=== PATIENT | male | born 1955 | race Caucasian/White ===

== ENCOUNTER 2022-03-11 11:47 | Outpatient (CLI) | payer MEDICARE, SELFPAY ==
--- NOTE | ~2022-03-11 | XR_ITS ---
XR chest 2V DATE: 03/11/2022 12:24 INDICATION: Shortness of breath TECHNIQUE: PA and lateral views COMPARISON: None FINDINGS: Normal heart size. Mild aortic tortuosity. No hilar or mediastinal enlargement. No pulmonar y infiltrate or consolidation, pleural effusion or pulmonary vascular congestion or pneumothorax. Osteopenia. IMPRESSION: No active cardiopulmonary disease Reviewed, dictated and finalized at location A. THERAPY CERTIFIED SUPERVISOR
[2022-03-11 12:35] LABS: Basophils Percent Auto 0.4 % (0.2-1.2); Eosinophils Absolute Auto 0.2 K/mm3 (0-0.3); Eosinophils Percent Auto 1.9 % (0-4.4); Hematocrit 49.9 % (42.0-52.0); Immature Granulocyte Percent A 1.2 % (0-0.5); Lymphocytes Absolute Auto 1.89 K/mm3 (0.9-3.2); Lymphocytes Percent Auto 22.7 % (18.3-44.2); Mean Corpuscular HGB Conc 32.1 g/dl (32-36); Mean Corpuscular Hemoglobin 27.4 pg (26-34); Mean Corpuscular Volume 85.3 fl (80-100); Mean Platelet Volume 10.2 fl (7.4-10.4); Monocytes Absolute Auto 0.7 K/mm3 (0.1-0.6); Monocytes Percent Auto 8.3 % (2.6-8.5); Neutrophils Absolute Auto 5.5 K/mm3 (1.3-6.7); Neutrophils Percent Auto 65.5 % (45.5-73.1); Platelet Count Result 274 k/mm3 (150-375); Red Blood Count 5.85 M/mm3 (4.6-6.20); Red Cell Distribution Width 13.7 % (11.5-14.5); White Blood Count 8.3 K/mm3 (4.5-10.0)
[2022-03-11 12:43] LABS: Hemoglobin A1C 7.6 % (<5.7)
[2022-03-11 12:56] LABS: LDL Cholesterol Direct 164 mg/dL
[2022-03-11 13:23] LABS: Alanine Aminotransferase 58 U/L (6-50); Albumin Level 4.8 g/dL (3.5-5.1); Alkaline Phosphatase 101 U/L (38-126); Anion Gap 14 mmol/L (8-16); Aspartate Amino Transferase 51 U/L (17-59); Bilirubin,Total 1.3 mg/dL (0.2-1.3); Blood Urea Nitrogen 13 mg/dL (9-20); Carbon Dioxide 24 mmol/L (22-30); Chloride 101 mmol/L (98-107); Cholesterol 261 mg/dL (0-200); Estimated Glomerular Filt Rate > 60; Glucose 122 mg/dL (65-110); HDL Direct 39 mg/dL; Potassium 4.3 mmol/L (3.4-5.0); Sodium 139 mmol/L (137-145); Triglycerides 202 mg/dL (<150)
== END 2022-03-11 11:48 | disposition home or self-care (01) ==
LOC: ANHLAB 11:51
PROVIDERS: PCP Family Medicine; Visit Provider Family Medicine
DX: R06.02 Shortness of breath (principal); S20.219A Contusion of unspecified front wall of thorax, initial encounter; Z00.00 Encounter for general adult medical examination without abnormal findings; R73.09 Other abnormal glucose; R53.82 Chronic fatigue, unspecified
CPT/HCPCS: 36415; 71046; 80053; 80061; 83036; 84443; 85025

== ENCOUNTER 2022-04-05 01:52 | Day surgery (SDC) | payer MEDICARE, SELFPAY ==
[2022-03-23 13:35] VITALS: BMI 33.8
--- NOTE | 2022-04-05 12:31 | WPDANESEPPF ---
Anes - Initial Pre Proc Eval Procedure: Operation Date: 04/05/22 13:30 Proposed Procedures p Screening Colonoscopy - George Carlin MD Date/Time: 04/05/22 12:31 Surgeon: George Carlin MD Pre Op Diagnosis: Hx of colon polyps Patient Data Age: 66 Gender: M Height: 1.91 m Weight: 122.8 kg Allergies Allergy/AdvReac Type Severity Reaction Status Date / Time No Known Allergies Allergy Verified 04/05/22 12:31 Home Medications Medication Instructions Recorded Confirmed Type empagliflozin 10 mg tablet 10 mg PO DAILY 03/16/22 03/23/22 History (Jardiance) sodium,potassium,mag sulfates 17.5 See Rx Instructions PO .COMPLEX 03/16/22 Rx gram-3.13 gram-1.6 gram oral soln #354 mL (Suprep Bowel Prep Kit) Patient hx anesthesia problems: none Family hx anesthesia problems: none Results Review: All pre-operative results and documents have been reviewed as part of the pre-operative evaluation. [facility] Past Medical History Medical History (Updated 04/05/22 @ 12:32 by Sriram Hathaway DO) Asthma Diabetes type 2, controlled Surgical History Surgical History (Updated 03/11/22 @ 10:31 by Kathy Dalton MD) Hx of tonsillectomy Family History Family History (Updated 03/11/22 @ 10:33 by Kathy Dalton MD) Father Diabetes mellitus Heart disease Mother Hand's palsy Social History Social History (Updated 03/11/22 @ 10:36 by Kathy Dalton MD) Social History: single, lives alone, works -self employed Smoking status: Never smoker Second hand tobacco smoke exposure: No Alcohol intake: current Drinks per week: 1 Alcohol use details: rarely Substance use: never Substance use type: does not use Lack of Transportation: No Current Housing: I Have Housing Concerned About Future Housing: No Difficulty Paying Gas/Electric Bills: No Difficulty Paying for Meds: No Currently Unemployed: No Education: Trade/Vocational Certificate Living arrangements: with family Additional occupation/education comments: self Gender identity (if verbalized by the patient): Male Sexual Orientation (if Verbalized by the Patient): Straight or Heterosexual Spiritual care concerns: No Agree to blood products: Yes Anes - Eval Final PreProcedure Day of Procedure 04/05/22 12:31 Patient weight: obese Heart: regular rate and rhythm Lungs: clear to auscultation Airway: Mallampati scale class II Neurological: alert and oriented Last oral intake: >/= 8 hours ASA classification: III Emergent: no Anesthetic plan: proceed Anesthesia type and monitoring: general GIVS and standard monitoring Results Review: All pre-operative results and documents have been reviewed as part of the pre-operative evaluation. Informed Consent: The patient's anesthetic plan and its attendant risks and benefits were discussed with the patient/family/POA. Questions were solicited and answers provided to the satisfaction of the patient/family/POA.
[2022-04-05] MEDS: LACTATED RINGERS 1,000 ML 150 ML IV CONT (12:45)
[2022-04-05 12:53] LABS: Glucose Point of Care 143 mg/dl (65-105)
--- NOTE | 2022-04-05 13:21 | PM.HPGS ---
History of Present Illness History of Present Illness Consent: Risks, benefits, and alternatives have been discussed and questions answered. Patient agrees to proceed with procedure. Chief complaint: screening colonoscopy Narrative: Chris Tabor is a 66 year old male presents for screening colonoscopy. Patient reports his current weight appetite and bowel movements are normal. Patient denies abdominal pain. He has had no bleeding. Patient has a distant history of hyperplastic colon polyp in 2002. Family history is noncontributory. Review of Systems Review of Systems: Review of systems noncontributory. [facility] Past Medical History Medical History (Updated 04/05/22 @ 13:23 by George Carlin MD) Asthma Diabetes type 2, controlled Surgical History Surgical History (Updated 03/11/22 @ 10:31 by Kathy Dalton MD) Hx of tonsillectomy Family History Family History (Updated 03/11/22 @ 10:33 by Kathy Dalton MD) Father Diabetes mellitus Heart disease Mother Hand's palsy Social History Social History (Updated 03/11/22 @ 10:36 by Kathy Dalton MD) Social History: single, lives alone, works -self employed Smoking status: Never smoker Second hand tobacco smoke exposure: No Alcohol intake: current Drinks per week: 1 Alcohol use details: rarely Substance use: never Substance use type: does not use Lack of Transportation: No Current Housing: I Have Housing Concerned About Future Housing: No Difficulty Paying Gas/Electric Bills: No Difficulty Paying for Meds: No Currently Unemployed: No Education: Trade/Vocational Certificate Living arrangements: with family Additional occupation/education comments: self Gender identity (if verbalized by the patient): Male Sexual Orientation (if Verbalized by the Patient): Straight or Heterosexual Spiritual care concerns: No Agree to blood products: Yes Meds Home Medications and Allergies Home Medications Medication Instructions Recorded Confirmed Type empagliflozin 10 mg tablet 10 mg PO DAILY 03/16/22 03/23/22 History (Jardiance) sodium,potassium,mag sulfates 17.5 See Rx Instructions PO .COMPLEX 03/16/22 Rx gram-3.13 gram-1.6 gram oral soln #354 mL (Suprep Bowel Prep Kit) Allergies Allergy/AdvReac Type Severity Reaction Status Date / Time No Known Allergies Allergy Verified 04/05/22 12:31 Exam Narrative: Physical exam reveals patient to be alert. Vital signs stable. HEENT exam is unremarkable. Patient is anicteric. Lungs are clear to auscultation and percussion. Heart is without murmur or extra sounds. Abdomen bowel sounds are present soft nontender with no organomegaly. Digital external rectal exam is normal. Assessment and Plan Assessment and plan (1) Encounter for screening colonoscopy: Code(s): Z12.11 - Encounter for screening for malignant neoplasm of colon Status: Acute Assessment and Plan: Patient presents for screening colonoscopy. Appears to be at average risk for colon polyps. Further recommendations may be given after endoscopy.
[2022-04-05 13:59] VITALS: BP 104/60; PULSE 87; RESP 32; O2SAT 93
[2022-04-05 14:05] VITALS: BP 112/78; PULSE 86; RESP 30; O2SAT 94
== END 2022-04-05 14:28 | disposition home or self-care (01) ==
PROVIDERS: PCP Family Medicine; Visit Provider Internal Medicine Gastroenterology
PROC: 0DJD8ZZ Inspection of Lower Intestinal Tract, Via Natural or Artificial Opening Endoscopic (ICD-10-PCS; CPT 45378; principal; 2022-04-05 13:30)
DX: Z12.11 Encounter for screening for malignant neoplasm of colon (principal); D12.5 Benign neoplasm of sigmoid colon; K57.30 Diverticulosis of large intestine without perforation or abscess without bleeding; E11.9 Type 2 diabetes mellitus without complications; Z79.84 Long term (current) use of oral hypoglycemic drugs; E66.9 Obesity, unspecified; Z68.34 Body mass index [BMI] 34.0-34.9, adult
CPT/HCPCS: 45385; 82948; 88305; J2704; J7120

== ENCOUNTER 2022-06-15 14:21 | Outpatient (CLI) | payer MEDICARE, OTHER, SELFPAY ==
[2022-06-15 15:39] LABS: Alanine Aminotransferase 54 U/L (6-50); Albumin Level 4.7 g/dL (3.5-5.1); Alkaline Phosphatase 120 U/L (38-126); Anion Gap 9 mmol/L (8-16); Aspartate Amino Transferase 37 U/L (17-59); Blood Urea Nitrogen 12 mg/dL (9-20); Calcium 9.1 mg/dL (8.4-10.2); Carbon Dioxide 24 mmol/L (22-30); Chloride 107 mmol/L (98-107); Cholesterol 212 mg/dL (0-200); Estimated Glomerular Filt Rate > 60; Glucose 98 mg/dL (65-110); HDL Direct 34 mg/dL; Potassium 4.1 mmol/L (3.4-5.0); Sodium 140 mmol/L (137-145); Triglycerides 174 mg/dL (<150)
[2022-06-15 15:50] LABS: LDL Cholesterol Direct 125 mg/dL
[2022-06-15 15:58] LABS: Creatinine Urine 177.6 mg/dL
[2022-06-15 16:33] LABS: MALB Creatinine Ratio 17.7 mg/g (0-30); Microalbumin Urine Random 31.4 mg/L (0-16.7)
[2022-06-15 16:42] LABS: Hemoglobin A1C 6.3 % (<5.7)
[2022-06-17 21:01] LABS: PSA, Free 0.31 ng/mL; PSA, Total 1.6 ng/mL (<=4.0)
[2022-06-18 13:05] LABS: ANA Cascade Screen Negative (Negative)
[2022-06-19 00:06] LABS: Vitamin D 1,25 (OH)2 Total 41 pg/mL (18-72); Vitamin D2 1,25 (OH)2 <8 pg/mL; Vitamin D3 1,25 (OH)2 41 pg/mL
== END 2022-06-15 14:22 | disposition home or self-care (01) ==
LOC: ANHLAB 14:26
PROVIDERS: PCP Family Medicine; Visit Provider Family Medicine
DX: M85.80 Other specified disorders of bone density and structure, unspecified site (principal); E55.9 Vitamin D deficiency, unspecified; M19.90 Unspecified osteoarthritis, unspecified site; E11.9 Type 2 diabetes mellitus without complications; E78.2 Mixed hyperlipidemia; N40.1 Benign prostatic hyperplasia with lower urinary tract symptoms; I10 Essential (primary) hypertension
CPT/HCPCS: 36415; 80053; 80061; 82043; 82652; 83036; 84153; 84154; 86038

== ENCOUNTER 2022-09-08 11:42 | Outpatient (CLI) | payer MEDICARE, OTHER, SELFPAY ==
[2022-09-08 12:09] LABS: Basophils Percent Auto 0.5 % (0.2-1.2); Eosinophils Absolute Auto 0.1 K/mm3 (0-0.3); Eosinophils Percent Auto 1.7 % (0-4.4); Immature Granulocyte Percent A 1.2 % (0-0.5); Lymphocytes Absolute Auto 1.98 K/mm3 (0.9-3.2); Lymphocytes Percent Auto 24.1 % (18.3-44.2); Mean Corpuscular HGB Conc 32.1 g/dl (32-36); Mean Corpuscular Hemoglobin 27.4 pg (26-34); Mean Corpuscular Volume 85.3 fl (80-100); Mean Platelet Volume 10.3 fl (7.4-10.4); Monocytes Absolute Auto 0.8 K/mm3 (0.1-0.6); Monocytes Percent Auto 10.2 % (2.6-8.5); Neutrophils Absolute Auto 5.1 K/mm3 (1.3-6.7); Neutrophils Percent Auto 62.3 % (45.5-73.1); Platelet Count Result 254 k/mm3 (150-375); Red Blood Count 6.21 M/mm3 (4.6-6.20); Red Cell Distribution Width 15.3 % (11.5-14.5); White Blood Count 8.2 K/mm3 (4.5-10.0)
[2022-09-08 12:19] LABS: Alanine Aminotransferase 40 U/L (6-50); Albumin Level 4.6 g/dL (3.5-5.1); Alkaline Phosphatase 125 U/L (38-126); Anion Gap 7 mmol/L (8-16); Aspartate Amino Transferase 34 U/L (17-59); Bilirubin,Total 0.9 mg/dL (0.2-1.3); Blood Urea Nitrogen 19 mg/dL (9-20); Calcium 9.1 mg/dL (8.4-10.2); Carbon Dioxide 27 mmol/L (22-30); Chloride 104 mmol/L (98-107); Cholesterol 178 mg/dL (0-200); Estimated Glomerular Filt Rate > 60; Glucose 116 mg/dL (65-110); HDL Direct 36 mg/dL; Potassium 4.3 mmol/L (3.4-5.0); Sodium 138 mmol/L (137-145); Triglycerides 205 mg/dL (<150)
[2022-09-08 12:30] LABS: LDL Cholesterol Direct 104 mg/dL
[2022-09-08 13:13] LABS: Creatinine Urine 101.3 mg/dL
[2022-09-08 13:18] LABS: MALB Creatinine Ratio 24.6 mg/g (0-30); Microalbumin Urine Random 24.9 mg/L (0-16.7)
[2022-09-08 13:48] LABS: Hemoglobin A1C 6.6 % (<5.7)
== END 2022-09-08 11:43 | disposition home or self-care (01) ==
LOC: ANHLAB 11:44
PROVIDERS: PCP Family Medicine; Visit Provider Family Medicine
DX: E11.9 Type 2 diabetes mellitus without complications (principal); E78.2 Mixed hyperlipidemia
CPT/HCPCS: 36415; 80053; 80061; 82043; 83036; 85025

== ENCOUNTER 2023-04-04 12:50 | Outpatient (CLI) | payer MEDICARE, OTHER, SELFPAY ==
[2023-04-04 13:13] LABS: Basophils Percent Auto 0.4 % (0.2-1.2); Eosinophils Absolute Auto 0.2 K/mm3 (0-0.3); Eosinophils Percent Auto 1.9 % (0-4.4); Hematocrit 49.6 % (42.0-52.0); Immature Granulocyte Absolute 0.09 K/mm3 (0.00-0.031); Lymphocytes Absolute Auto 2.43 K/mm3 (0.9-3.2); Mean Corpuscular HGB Conc 32.3 g/dl (32-36); Mean Corpuscular Hemoglobin 27.4 pg (26-34); Mean Corpuscular Volume 85.1 fl (80-100); Mean Platelet Volume 9.6 fl (7.4-10.4); Monocytes Absolute Auto 0.8 K/mm3 (0.1-0.6); Monocytes Percent Auto 9.3 % (2.6-8.5); Neutrophils Absolute Auto 5.4 K/mm3 (1.3-6.7); Neutrophils Percent Auto 60.4 % (45.5-73.1); Platelet Count Result 264 k/mm3 (150-375); Red Blood Count 5.83 M/mm3 (4.6-6.20); Red Cell Distribution Width 14.3 % (11.5-14.5)
[2023-04-04 13:22] LABS: Alanine Aminotransferase 19 U/L (6-50); Albumin Level 4.5 g/dL (3.5-5.1); Alkaline Phosphatase 115 U/L (38-126); Anion Gap 10 mmol/L (8-16); Aspartate Amino Transferase 25 U/L (17-59); Bilirubin,Total 0.8 mg/dL (0.2-1.3); Blood Urea Nitrogen 14 mg/dL (9-20); Calcium 9.4 mg/dL (8.4-10.2); Carbon Dioxide 27 mmol/L (22-30); Chloride 103 mmol/L (98-107); Cholesterol 183 mg/dL (0-200); Estimated Glomerular Filt Rate > 60; Glucose 111 mg/dL (65-110); HDL Direct 41 mg/dL; Potassium 4.4 mmol/L (3.4-5.0); Sodium 140 mmol/L (137-145); Triglycerides 217 mg/dL (<150)
[2023-04-04 13:38] LABS: LDL Cholesterol Direct 99 mg/dL
[2023-04-04 14:04] LABS: Hemoglobin A1C 6.3 % (<5.7)
== END 2023-04-04 12:51 | disposition home or self-care (01) ==
LOC: ANHLAB 12:52
PROVIDERS: PCP Family Medicine; Visit Provider Family Medicine
DX: E78.2 Mixed hyperlipidemia (principal); I10 Essential (primary) hypertension; E11.9 Type 2 diabetes mellitus without complications
CPT/HCPCS: 36415; 80053; 80061; 83036; 85025

== ENCOUNTER 2023-08-18 12:46 | Outpatient (CLI) | payer MEDICARE, SELFPAY ==
[2023-08-18 13:18] LABS: Basophils Percent Auto 0.5 % (0.2-1.2); Eosinophils Absolute Auto 0.2 K/mm3 (0-0.3); Eosinophils Percent Auto 2.8 % (0-4.4); Hematocrit 51.2 % (42.0-52.0); Hemoglobin 16.3 g/dL (14.0-18.0); Immature Granulocyte Absolute 0.12 K/mm3 (0.00-0.031); Immature Granulocyte Percent A 1.4 % (0-0.5); Lymphocytes Absolute Auto 1.67 K/mm3 (0.9-3.2); Mean Corpuscular HGB Conc 31.8 g/dl (32-36); Mean Corpuscular Hemoglobin 27.1 pg (26-34); Mean Platelet Volume 9.7 fl (7.4-10.4); Monocytes Absolute Auto 0.7 K/mm3 (0.1-0.6); Monocytes Percent Auto 8.4 % (2.6-8.5); Neutrophils Absolute Auto 5.6 K/mm3 (1.3-6.7); Neutrophils Percent Auto 66.9 % (45.5-73.1); Platelet Count Result 252 k/mm3 (150-375); Red Blood Count 6.02 M/mm3 (4.6-6.20); Red Cell Distribution Width 15.9 % (11.5-14.5); White Blood Count 8.3 K/mm3 (4.5-10.0)
[2023-08-18 13:29] LABS: Alanine Aminotransferase 27 U/L (6-50); Albumin Level 4.6 g/dL (3.5-5.1); Alkaline Phosphatase 108 U/L (38-126); Anion Gap 7 mmol/L (4-12); Aspartate Amino Transferase 25 U/L (17-59); Bilirubin,Total 0.8 mg/dL (0.2-1.3); Blood Urea Nitrogen 13 mg/dL (9-20); Calcium 9.4 mg/dL (8.4-10.2); Carbon Dioxide 25 mmol/L (22-30); Chloride 109 mmol/L (98-107); Cholesterol 185 mg/dL (0-200); Estimated Glomerular Filt Rate > 60; Glucose 135 mg/dL (65-110); HDL Direct 44 mg/dL; Potassium 4.5 mmol/L (3.4-5.0); Sodium 141 mmol/L (137-145); Triglycerides 199 mg/dL (<150)
[2023-08-18 13:30] LABS: Hemoglobin A1C 7.2 % (<5.7)
[2023-08-18 13:40] LABS: LDL Cholesterol Direct 117 mg/dL
[2023-08-18 13:49] LABS: Creatinine Urine 132.2 mg/dL
[2023-08-18 13:54] LABS: MALB Creatinine Ratio 30.7 mg/g (0-30); Microalbumin Urine Random 40.6 mg/L (0-16.7)
[2023-08-21 14:14] LABS: ANA Cascade Screen NEGATIVE (NEGATIVE)
== END 2023-08-18 12:47 | disposition home or self-care (01) ==
PROVIDERS: PCP Family Medicine; Visit Provider Family Medicine
DX: R53.82 Chronic fatigue, unspecified (principal); I10 Essential (primary) hypertension; E11.9 Type 2 diabetes mellitus without complications; M19.90 Unspecified osteoarthritis, unspecified site; E78.2 Mixed hyperlipidemia
CPT/HCPCS: 36415; 80053; 80061; 82043; 83036; 85025; 86038; 86225; 86235; 86364

== ENCOUNTER 2023-12-21 11:42 | Outpatient (CLI) | payer MEDICARE, SELFPAY ==
[2023-12-21 12:48] LABS: Alanine Aminotransferase 42 U/L (6-50); Albumin Level 4.6 g/dL (3.5-5.1); Alkaline Phosphatase 128 U/L (38-126); Anion Gap 9 mmol/L (4-12); Aspartate Amino Transferase 39 U/L (17-59); Bilirubin,Total 0.9 mg/dL (0.2-1.3); Blood Urea Nitrogen 18 mg/dL (9-20); Calcium 9.2 mg/dL (8.4-10.2); Carbon Dioxide 28 mmol/L (22-30); Chloride 101 mmol/L (98-107); Cholesterol 179 mg/dL (0-200); Estimated Glomerular Filt Rate > 60; Glucose 140 mg/dL (65-110); HDL Direct 44 mg/dL; Potassium 4.4 mmol/L (3.4-5.0); Sodium 138 mmol/L (137-145); Triglycerides 213 mg/dL (<150)
[2023-12-21 12:59] LABS: LDL Cholesterol Direct 99 mg/dL
[2023-12-21 15:00] LABS: Creatinine Urine 107.8 mg/dL
[2023-12-21 15:05] LABS: MALB Creatinine Ratio 29.2 mg/g (0-30); Microalbumin Urine Random 31.5 mg/L (0-16.7)
[2023-12-21 15:14] LABS: Hemoglobin A1C 7.4 % (<5.7)
== END 2023-12-21 11:43 | disposition home or self-care (01) ==
PROVIDERS: PCP Family Medicine; Visit Provider Family Medicine
DX: E78.2 Mixed hyperlipidemia (principal); E11.22 Type 2 diabetes mellitus with diabetic chronic kidney disease; N18.2 Chronic kidney disease, stage 2 (mild)
CPT/HCPCS: 36415; 80053; 80061; 82043; 83036

== ENCOUNTER 2024-04-16 12:16 | Outpatient (CLI) | payer MEDICARE, SELFPAY ==
[2024-04-16 13:39] LABS: Basophils Absolute Auto 0.1 K/mm3 (0.0-0.1); Basophils Percent Auto 0.7 % (0.2-1.2); Eosinophils Absolute Auto 0.1 K/mm3 (0-0.3); Eosinophils Percent Auto 1.6 % (0-4.4); Hematocrit 50.8 % (42.0-52.0); Hemoglobin 16.4 g/dL (14.0-18.0); Immature Granulocyte Percent A 1.3 % (0-0.5); Lymphocytes Absolute Auto 1.79 K/mm3 (0.9-3.2); Lymphocytes Percent Auto 23.6 % (18.3-44.2); Mean Corpuscular HGB Conc 32.3 g/dl (32-36); Mean Corpuscular Hemoglobin 27.7 pg (26-34); Mean Corpuscular Volume 85.8 fl (80-100); Mean Platelet Volume 10.9 fl (7.4-10.4); Monocytes Absolute Auto 0.8 K/mm3 (0.1-0.6); Monocytes Percent Auto 11.1 % (2.6-8.5); Neutrophils Absolute Auto 4.7 K/mm3 (1.3-6.7); Neutrophils Percent Auto 61.7 % (45.5-73.1); Platelet Count Result 242 k/mm3 (150-375); Red Blood Count 5.92 M/mm3 (4.6-6.20); Red Cell Distribution Width 14.4 % (11.5-14.5); White Blood Count 7.6 K/mm3 (4.5-10.0)
[2024-04-16 14:03] LABS: Alanine Aminotransferase 26 U/L (6-50); Albumin Level 4.7 g/dL (3.5-5.1); Alkaline Phosphatase 107 U/L (38-126); Anion Gap 7 mmol/L (4-12); Aspartate Amino Transferase 25 U/L (17-59); Bilirubin,Total 0.9 mg/dL (0.2-1.3); Blood Urea Nitrogen 20 mg/dL (9-20); Calcium 9.5 mg/dL (8.4-10.2); Carbon Dioxide 23 mmol/L (22-30); Chloride 108 mmol/L (98-107); Estimated Glomerular Filt Rate > 60; Glucose 118 mg/dL (65-110); Potassium 4.1 mmol/L (3.4-5.0); Sodium 138 mmol/L (137-145)
[2024-04-16 17:19] LABS: Hemoglobin A1C 7.1 % (<5.7)
== END 2024-04-16 12:17 | disposition home or self-care (01) ==
PROVIDERS: PCP Family Medicine; Visit Provider Family Medicine
DX: I10 Essential (primary) hypertension (principal); E11.9 Type 2 diabetes mellitus without complications
CPT/HCPCS: 36415; 80053; 83036; 85025

== ENCOUNTER 2024-09-16 14:36 | Outpatient (CLI) | payer MEDICARE, SELFPAY ==
--- OUTSIDE RECORDS SUMMARY | 2024-09-16 14:41 | XMS_ITS | Clinical Summary ---
Author Organization [facility] al Address [address] [place] [address] Care Team Providers Care Supervisor [employer] Name Role Phone Kathy Dalton MD Primary Care Provider Allergies No known active allergies Medications acetaminophen (TYLENOL) 500 mg tabletIndicatio ns:Back Pain Take 1-2 tablets (500-1,000 mg total) by mouth every 8 (eight) hours as needed for pain (1 tablet for mild to moderate pain. 2 tablets for severe pain) 30 tablet 09/07/2018 Active naproxen (NAPROSYN) 500 mg tabletIndicatio ns:Pain Take 1 tablet (500 mg total) by mouth 2 (two) times a day as needed for pain Take with food. 30 tablet 09/07/2018 Active cyclobenzaprine (FLEXERIL) 10 mg tabletIndicatio ns:Muscle Spasm Take 1 tablet (10 mg total) by mouth every 8 (eight) hours as needed for muscle spasms 20 tablet 09/07/2018 Active OneTouch Verio test strips strip USE TO TEST BLOOD SUGAR LEVELS DAILY 09/28/2022 Active Farxiga 10 mg tablet 01/04/2023 Active rosuvastatin (CRESTOR) 10 mg tablet Take 1 tablet (10 mg total) by mouth daily 10/17/2022 Active Active Problems No known active problems Surgical History Surgery Date Site/Laterality Comments TONSILLECTOMY Social History Tobacco Use Types Packs/Day Years Used Date Smoking Tobacco: Never Smokeless Tobacco: Never Personal Safety Answer Date Recorded Getting School Help Needed Not on file 07/01 Sex and Gender Information Value Date Recorded Sex Assigned at Not on file Legal Sex Male 9:22 AM CDT Gender Identity Not on file Sexual Orientation Not on file Obstetrics History Last Filed Vital Signs Vital Sign Reading Time Taken Comments Blood Pressure 109/77 09/07/2018 12:00 PM CDT Pulse 74 09/07/2018 12:00 PM CDT Temperature 36.2 C (97.2 F) 09/07/2018 9:33 AM CDT Respiratory Rate 18 09/07/2018 11:05 AM CDT Oxygen Saturation 94% 09/07/2018 12:00 PM CDT Inhaled Oxygen Concentration - - Weight 113.4 kg (250 lb) 09/07/2018 9:33 AM CDT Height 190.5 cm (6' 3 ) 09/07/2018 9:33 AM CDT Body Mass Index 31.25 09/07/2018 9:33 AM CDT Plan of Treatment Health Maintenance Due Date Last Done Comments Colon Cancer Screening-Colonoscopy 1954 Depression Screening 1954 Fall Risk Assessment 1954 Hepatitis C Screening 1954 Prostate Cancer Screening-PSA 1954 DTaP/Tdap/Td Vaccine (1 - Tdap) 1965 Hepatitis B Screening 1972 Pneumococcal vaccine 65+ (1 of 1 - PCV) 2004 Abdominal Aortic Aneurysm (AAA) Screen 12/13/2019 Well Visit 65+ 12/13/2019 Zoster Vaccine (2 of 2) 11/15/2022 09/20/2022 Influenza Vaccine (#1) 2023 Insurance MEDICARE [facility]ANS [facility] INS CO THIRD [place] LIABILITY - GENERIC Member Subscriber Plan / Payer (Ef fective 2018-Present) Name:Chris Tabor Member ID:[id number] Relation to Subscriber:Self Name:Chris Tabor Subscriber ID:[id number] Payer ID:[id number] Group ID:Not on file Type:OTHER [phone] Address: [facility] [id number] [place] [address] Care Teams Supervisor [employer] Relationship Specialty Start Date End Date Kathy Dalton MD [address] [facility] [address] [place] [address] PCP - General Family Medicine 01/05/23
--- OUTSIDE RECORDS SUMMARY | 2024-09-16 14:41 | XMS_ITS | Referral Summary ---
Author Organization [facility] al Address [address] [place] [address] Care Team Providers Care District Manager Primary Care Sales Name Role Phone Kathy Dalton MD Primary [...] Active Active Problems No known active problems Social History Tobacco Use Types Packs/Day Years Used Date Smoking Tobacco: Never Smokeless Tobacco: Never Personal Safety Answer Date Recorded Getting School Help Needed Not on file 07/01 Sex and Gender Information Value Date Recorded Sex Assigned at Not on file Legal Sex Male 9:22 AM CDT Gender Identity Not on file Sexual Orientation Not on file Last Filed Vital Signs Vital Sign Reading [...] 09/07/2018 9:33 AM CDT Plan of Treatment Not on file Insurance MEDICARE [facility] INS CO THIRD CONSTITUTION PARTY LIABILITY - GENERIC Member Subscriber Plan / Payer (Ef fective 2018-Present) Name:Chris Tabor Member ID:[id number] Relation to Subscriber:Self Name:Chris Tabor Subscriber ID:[id number] Payer ID:[id number] Group ID:Not on file Type:OTHER [phone] Address: [facility] [id number] [place] [address] Care Teams District Manager Primary Care Sales Relationship Specialty Start Date End Date Kathy Dalton MD [address] [facility] [address] [place] [id number] PCP - General Family Medicine 01/05/23
[2024-09-16 15:47] LABS: Alanine Aminotransferase 31 U/L (6-50); Albumin Level 4.7 g/dL (3.5-5.1); Alkaline Phosphatase 124 U/L (38-126); Anion Gap 12 mmol/L (4-12); Aspartate Amino Transferase 40 U/L (17-59); Bilirubin,Total 0.9 mg/dL (0.2-1.3); Blood Urea Nitrogen 18 mg/dL (9-20); Calcium 9.1 mg/dL (8.4-10.2); Carbon Dioxide 22 mmol/L (22-30); Chloride 106 mmol/L (98-107); Estimated Glomerular Filt Rate > 60; Glucose 135 mg/dL (65-110); Potassium 4.3 mmol/L (3.4-5.0); Sodium 140 mmol/L (137-145)
== END 2024-09-16 14:37 | disposition home or self-care (01) ==
PROVIDERS: PCP Family Medicine
DX: E11.9 Type 2 diabetes mellitus without complications (principal)
CPT/HCPCS: 36415; 80053; 83036

== ENCOUNTER 2024-12-17 15:14 | Outpatient (CLI) | payer MEDICARE, SELFPAY ==
--- OUTSIDE RECORDS SUMMARY | 2024-12-17 15:42 | XMS_ITS | Clinical Summary ---
Author Organization [facility] al Address [address] [place] [address] Care Team Providers Care Measurement Department Chief Clerk Name Role Phone Kathy Dalton MD Primary [...] 9:33 AM CDT Height 190.5 cm (6' 3) 09/07/2018 9:33 AM CDT Body Mass Index [...] of 2) 11/15/2022 09/20/2022 Influenza Vaccine (#1) 2024 Insurance MEDICARE [facility]ICIANS [facility] INS CO THIRD DEMOCRAT LIABILITY - GENERIC Member Subscriber Plan / Payer (Ef fective 2018-Present) Name:Chris Tabor Member ID:[id number] Relation to Subscriber:Self Name:Chris Tabor Subscriber ID:[id number] Payer ID:[id number] Group ID:Not on file Type:OTHER [phone] Address: [facility] [address] [place] [address] Care Teams Measurement Department Chief Clerk Relationship Specialty Start Date End Date Kathy Dalton MD [address] [facility] [address] [place] [address] PCP - General Family Medicine 01/05/23
[2024-12-17 15:50] LABS: Hematocrit 50.8 % (42.0-52.0); Hemoglobin 16.2 g/dL (14.0-18.0); Immature Granulocyte Percent A 0.9 % (0-0.5); Lymphocytes Absolute Auto 1.77 K/mm3 (0.9-3.2); Mean Corpuscular HGB Conc 31.9 g/dl (32-36); Mean Corpuscular Hemoglobin 26.8 pg (26-34); Mean Corpuscular Volume 84.1 fl (80-100); Nucleated Red Blood Cells Absolute Auto 0.000 K/mm3 (0.0-0.012); Nucleated Red Blood Cells Perc 0.0 % (0.0-0.2); Platelet Count Result 269 k/mm3 (150-375); Red Blood Count 6.04 M/mm3 (4.6-6.20); White Blood Count 8.6 K/mm3 (4.5-10.0)
[2024-12-17 15:59] LABS: Alanine Aminotransferase 27 U/L (6-50); Albumin Level 4.4 g/dL (3.5-5.1); Alkaline Phosphatase 103 U/L (38-126); Anion Gap 8 mmol/L (4-12); Aspartate Amino Transferase 31 U/L (17-59); Bilirubin,Total 0.7 mg/dL (0.2-1.3); Blood Urea Nitrogen 13 mg/dL (9-20); Calcium 9.5 mg/dL (8.4-10.2); Carbon Dioxide 24 mmol/L (22-30); Chloride 105 mmol/L (98-107); Cholesterol 164 mg/dL (0-200); Estimated Glomerular Filt Rate > 60; Glucose 122 mg/dL (65-110); HDL Direct 44 mg/dL; Potassium 4.2 mmol/L (3.4-5.0); Sodium 137 mmol/L (137-145); Total Protein 7.5 g/dL (6.3-8.2); Triglycerides 190 mg/dL (<150)
[2024-12-17 16:30] LABS: Prostate Specific Antigen 1.1 ng/mL (< OR = 4.0)
[2024-12-17 16:54] LABS: Hemoglobin A1C 7.0 % (<5.7)
[2024-12-17 18:18] LABS: MALB Creatinine Ratio 53.6 mg/g (0-30)
== END 2024-12-17 15:15 | disposition home or self-care (01) ==
LOC: ANHLAB 15:18
PROVIDERS: PCP Family Medicine; Visit Provider Student in an Organized Health Care Education/Training Program
DX: Z12.5 Encounter for screening for malignant neoplasm of prostate (principal); E78.5 Hyperlipidemia, unspecified; I10 Essential (primary) hypertension; E11.9 Type 2 diabetes mellitus without complications
CPT/HCPCS: 36415; 80053; 80061; 82043; 83036; 84153; 85025; G0103

== ENCOUNTER 2025-04-14 15:35 | Outpatient (CLI) | payer MEDICARE, SELFPAY ==
[2025-04-14 16:11] LABS: Hemoglobin A1C 7.1 % (<5.7)
[2025-04-14 16:16] LABS: Alanine Aminotransferase 23 U/L (6-50); Albumin Level 4.6 g/dL (3.5-5.1); Alkaline Phosphatase 138 U/L (38-126); Anion Gap 8 mmol/L (4-12); Aspartate Amino Transferase 22 U/L (17-59); Bilirubin,Total 0.9 mg/dL (0.2-1.3); Blood Urea Nitrogen 19 mg/dL (9-20); Calcium 9.5 mg/dL (8.4-10.2); Carbon Dioxide 25 mmol/L (22-30); Chloride 104 mmol/L (98-107); Estimated Glomerular Filt Rate > 60; Glucose 124 mg/dL (65-110); Potassium 4.1 mmol/L (3.4-5.0); Sodium 137 mmol/L (137-145); Total Protein 7.8 g/dL (6.3-8.2)
--- OUTSIDE RECORDS SUMMARY | 2025-04-14 17:53 | XMS_ITS | Clinical Summary ---
Author Organization [facility] al Address [address] [place] [address] Care Team Providers Care Commercial Management Accountant Name Role Phone Kathy Dalton MD Primary [...] Risk Assessment 1954 Hepatitis C Screening 1954 DTaP/Tdap/Td Vaccine (1 - Tdap) 1965 Hepatitis B Screening 1972 Pneumococcal vaccine 65+ (1 of 1 - PCV) 2004 Abdominal Aortic Aneurysm (AAA) Screen 12/13/2019 Well Visit 65+ 12/13/2019 Zoster Vaccine (2 of 2) 11/15/2022 09/20/2022 Influenza Vaccine (#1) 2024 Insurance MEDICARE [employer]YSICIANS [facility] [place] INS CO THIRD [employer] PARTY LIABILITY - GENERIC Member Subscriber Plan / Payer (Ef fective 2018-Present) Name:Chris Tabor Member ID:[id number] Relation to Subscriber:Self Name:Chris Tabor Subscriber ID:[id number] Payer ID:[id number] Group ID:Not on file Type:OTHER [phone] Address: [facility] [id number] [place] [address] Care Teams Commercial Management Accountant Relationship Specialty Start Date End Date Kathy Dalton MD [address] [place] [address] PCP - General Family Medicine 01/05/23
== END 2025-04-14 15:36 | disposition home or self-care (01) ==
PROVIDERS: PCP Family Medicine; Visit Provider Student in an Organized Health Care Education/Training Program
DX: I10 Essential (primary) hypertension (principal); E11.65 Type 2 diabetes mellitus with hyperglycemia
CPT/HCPCS: 36415; 80053; 83036

== ENCOUNTER 2025-04-16 14:43 | Outpatient (CLI) | payer MEDICARE, SELFPAY ==
--- NOTE | ~2025-04-16 | XR_ITS ---
EXAMINATION: [id number], 04/16/2025 15:00 SANITATION INSPECTOR HISTORY: S29.9XXA - Unspecified injury of thorax, initial encounter COMPARISON: No comparisons available. Findings: Nondisplaced fracture of the lateral right sixth and seventh ribs. No significant degenerative changes. Soft tissues unremarkable. Impression: Fractures detailed above Reviewed, dictated and finalized at location P. TATION INSPECTOR Impression: Fractures detailed above
--- OUTSIDE RECORDS SUMMARY | 2025-04-16 17:34 | XMS_ITS | Clinical Summary ---
Author Organization [facility] al Address [address] [place] [address] Care Team Providers Care Principal Associate Name Role Phone Kathy Dalton MD Primary [...] Influenza Vaccine (#1) 2024 Insurance [facility]ICARE [facility] INS CO THIRD [employer] LIABILITY - GENERIC Member Subscriber Plan / Payer (Ef fective 2018-Present) Name:Chris Tabor Member ID:[id number] Relation to Subscriber:Self Name:Chris Tabor Subscriber ID:[id number] Payer ID:[id number] Group ID:Not on file Type:OTHER [phone] Address: [facility] [id number] [place] [address] Care Teams Principal Associate Relationship Specialty Start Date End Date Kathy Dalton MD [address] [place] [address] PCP - General Family Medicine 01/05/23
== END 2025-04-16 14:44 | disposition home or self-care (01) ==
PROVIDERS: PCP Family Medicine; Visit Provider Student in an Organized Health Care Education/Training Program
DX: S22.41XA Multiple fractures of ribs, right side, initial encounter for closed fracture (principal); X58.XXXA Exposure to other specified factors, initial encounter
CPT/HCPCS: 71101